=== PATIENT | male | born 1950 | race Hispanic/Latino ===

== ENCOUNTER 2020-07-04 10:00 | Outpatient (CLI) | payer MEDICARE, OTHER ==
--- NOTE | 2020-07-04 11:12 | Cat Scan Report ---
CT OF THE CHEST WITHOUT CONTRAST INDICATION / CLINICAL INFORMATION: Abnormal chest radiograph with retrocardiac airspace opacity. TECHNIQUE: All CT scans at this location are performed using CT dose reduction for ALARA by means of automated e xposure control. COMPARISON: None available. FINDINGS: There is a moderate pericardial effusion which measures approximately 28 Hounsfield units. There are minimal bilateral pleural effusions. The heart is enlarged. Marked coronary artery calcification is p resent. Interstitial lung markings are minimally increased. No focal consolidation, mass or adenopath y. 1.6 cm right adrenal nodule measures -2 Hounsfield units. The visualized upper abdomen is otherwise u nremarkable. Mild generalized thoracic spondylosis without acute osseous abnormality. IMPRESSION: 1. Cardiomegaly and moderate, slightly high density, pericardial effusion. No retrocardiac mass, cons olidation or atelectasis. 2. Trace bilateral pleural effusions and probable minimal interstitial edema. 3. Incidental 1.6 cm benign right adrenal adenoma. Signer Name: Seth Jean MD Signed: 07/04/2020 11:08 AM Workstation Name: [id number][id number]
== END 2020-07-04 10:01 | disposition home or self-care (01) ==
LOC: CT 10:00
PROVIDERS: ATTEND Internal Medicine Cardiovascular Disease
DX: I31.3 Pericardial effusion (noninflammatory) (principal); N18.9 Chronic kidney disease, unspecified; J90 Pleural effusion, not elsewhere classified; I51.7 Cardiomegaly; I25.10 Atherosclerotic heart disease of native coronary artery without angina pectoris; C73 Malignant neoplasm of thyroid gland; I12.9 Hypertensive chronic kidney disease with stage 1 through stage 4 chronic kidney disease, or unspecified chronic kidney disease
CPT/HCPCS: 71250